=== PATIENT | male | born 1960 | race Caucasian/White ===

== ENCOUNTER → 2021-12-04 | Outpatient (CLI) | payer OTHER ==
[2014-10-07 09:32] VITALS: BP 139/90
--- NOTE | 2021-12-04 12:23 | KCIC ---
EXAM: Pelvis and right hip, 2 views. HISTORY: Pain. COMPARISON: None. FINDINGS: A frontal view of the pelvis and frog-leg view the right hip are obtained. There is no frac ture, dislocation or subluxation. There is mild marginal acetabular and femoral head spurring. There is degenerative change involving the lower lumbar spine. IMPRESSION: Mild bilateral hip osteoarthritis. No acute osseous finding. Electronically signed by: Yanet Akins MD (12/04/2021 11:25 AM) [id number]
--- NOTE | 2021-12-04 12:23 | KCIC ---
EXAM: Left shoulder, 3 views. HISTORY: Pain. COMPARISON: None. FINDINGS: 3 views of the left shoulder obtained. There is no fracture, dislocation or subluxation. Th ere is cervical spinal fusion instrumentation. IMPRESSION: No acute osseous finding. Electronically signed by: Yanet Akins MD (12/04/2021 11:10 AM) [id number]
== END ==
LOC: KCIC 10:30
PROVIDERS: ATTEND Physician Assistant Medical
DX: M16.0 Bilateral primary osteoarthritis of hip (principal); M47.816 Spondylosis without myelopathy or radiculopathy, lumbar region; M76.891 Other specified enthesopathies of right lower limb, excluding foot; M43.22 Fusion of spine, cervical region
CPT/HCPCS: 73030; 73501